=== PATIENT | male | born 1970 | race African-American/Black ===

== ENCOUNTER → 2016-09-06 | Outpatient (CLI) | payer OTHER ==
[~2016-09-06] MED LIST: ASMANEX TWISTHALER INH; ASPI1TAB PO; Aspirin PO; CLAR10CA3 PO; FISH1000 PO; HCTZ PO; LISINOPRIL PO; MELO7.5T6 PO; METH75TA PO; MONT10TA2 PO; OMEP20CA3 PO; PROP60TA14 PO; ROBA750T4 PO; SIMV20TA2 PO; TYLE325T5 PO
[2016-09-06 10:53] LABS: MEAN CORPUSCULAR HEMOGLOBIN 28.9 pg (27.0-33.0); MEAN CORPUSCULAR HGB CONC 32.4 g/dl (32.0-36.5); MEAN CORPUSCULAR VOLUME 89.1 fl (80.0-96.0); RED CELL DISTRIBUTION WIDTH 13.3 % (11.5-14.5); WHITE BLOOD COUNT 4.2 K/mm3 (4.0-10.0)
[2016-09-06 11:16] LABS: ALBUMIN 3.5 GM/DL (3.2-5.2); ALBUMIN/GLOBULIN RATIO 0.92 (1.00-1.93); ALKALINE PHOSPHATASE 80 U/L (45-117); ALT/SGPT 57 U/L (12-78); ANION GAP 5 MEQ/L (8-16); AST/SGOT 23 U/L (15-37); BILIRUBIN,DIRECT 0.1 MG/DL (0.0-0.2); BILIRUBIN,TOTAL 0.5 MG/DL (0.2-1.0); BLOOD UREA NITROGEN 12 MG/DL (7-18); CALCIUM LEVEL 8.9 MG/DL (8.5-10.1); CARBON DIOXIDE LEVEL 33 MEQ/L (21-32); CHLORIDE LEVEL 105 MEQ/L (98-107); CREATININE FOR GFR 1.17 MG/DL (0.70-1.30); GLOMERULAR FILTRATION RATE > 60.0 (>60); GLUCOSE, FASTING 101 MG/DL (70-105); PHOSPHORUS LEVEL 3.5 MG/DL (2.5-4.9); POTASSIUM SERUM 4.3 MEQ/L (3.5-5.1); SODIUM LEVEL 143 MEQ/L (136-145); TOTAL PROTEIN 7.3 GM/DL (6.4-8.2)
== END | disposition home or self-care (01) ==
LOC: M LAB 10:01
PROVIDERS: ATTEND Podiatrist Foot & Ankle Surgery
DX: Z51.81 Encounter for therapeutic drug level monitoring (principal); Z79.899 Other long term (current) drug therapy; B35.1 Tinea unguium

== ENCOUNTER 2016-10-28 08:39 | Outpatient (RCR) | payer OTHER | END 2016-10-29 | LOC: M PT 08:39 | PROVIDERS: ATTEND Family Medicine | DX: Z51.89 Encounter for other specified aftercare (principal); G51.0 Bell's palsy | CPT/HCPCS: 97010; 97035; 97161; G0283 ==

== ENCOUNTER → 2016-10-28 | Outpatient (CLI) | payer OTHER ==
[2016-10-28 10:27] LABS: MEAN CORPUSCULAR HEMOGLOBIN 29.4 pg (27.0-33.0); MEAN CORPUSCULAR HGB CONC 33.2 g/dl (32.0-36.5); MEAN CORPUSCULAR VOLUME 88.4 fl (80.0-96.0); RED CELL DISTRIBUTION WIDTH 13.5 % (11.5-14.5); WHITE BLOOD COUNT 3.7 K/mm3 (4.0-10.0)
[2016-10-28 10:49] LABS: ALBUMIN 3.7 GM/DL (3.2-5.2); ALBUMIN/GLOBULIN RATIO 1.09 (1.00-1.93); ALKALINE PHOSPHATASE 68 U/L (45-117); ALT/SGPT 34 U/L (12-78); ANION GAP 6 MEQ/L (8-16); AST/SGOT 22 U/L (15-37); BILIRUBIN,DIRECT 0.1 MG/DL (0.0-0.2); BILIRUBIN,TOTAL 0.5 MG/DL (0.2-1.0); BLOOD UREA NITROGEN 11 MG/DL (7-18); CALCIUM LEVEL 8.9 MG/DL (8.5-10.1); CARBON DIOXIDE LEVEL 28 MEQ/L (21-32); CHLORIDE LEVEL 109 MEQ/L (98-107); CREATININE FOR GFR 1.21 MG/DL (0.70-1.30); GLOMERULAR FILTRATION RATE > 60.0 (>60); GLUCOSE, FASTING 105 MG/DL (70-105); PHOSPHORUS LEVEL 2.5 MG/DL (2.5-4.9); POTASSIUM SERUM 4.1 MEQ/L (3.5-5.1); SODIUM LEVEL 143 MEQ/L (136-145); TOTAL PROTEIN 7.1 GM/DL (6.4-8.2)
== END ==
LOC: M LAB 09:42
PROVIDERS: ATTEND Podiatrist Foot & Ankle Surgery
DX: Z51.81 Encounter for therapeutic drug level monitoring (principal); Z79.899 Other long term (current) drug therapy; B35.1 Tinea unguium

== ENCOUNTER 2016-11-10 08:29 | Outpatient (RCR) | payer OTHER | END 2016-11-28 | disposition home or self-care (01) | LOC: M PT 08:29 | PROVIDERS: ATTEND Family Medicine | DX: Z51.89 Encounter for other specified aftercare (principal); G51.0 Bell's palsy | CPT/HCPCS: 97010; 97035; G0283 ==

== ENCOUNTER → 2017-01-18 | Day surgery (SDC) | payer OTHER ==
[~2017-01-18] VITALS: Ht 172.7 cm; Wt 148.3 kg
[~2017-01-18] MED LIST changes: +ACETAMINOPHEN 325 MG TAB PO PRN; +ATOR1TAB18 PO; +BACL5TA PO; +BUPIVACAINE 0.75% 10 ML VIAL As Ordered ONE; +DESFLURANE 240 ML INHALANT As Ordered ONE; +ERYTHROMYCIN OPHTH OINT As Ordered ONE; +LIDOCAINE 2% W/EPIN INJ 20ML **PRES FREE As Ordered ONE; +LIDOCAINE 4% INJ 5 ML AMP As Ordered ONE; +LIDOCAINE 4% INJ 5 ML AMP OU ONE; +LR 1,000 ML IV SCH; +MAG-TAB2 PO; +MIDAZOLAM INJ 2 MG/2 ML VIAL (J2250) As Ordered ONE; +OFLOXACIN 0.3 % (OCUFLOX) OPTH SOL 5ML XX ONE; +POVIDONE-IODINE 5% OPHTH PREP SOL 30ML As Ordered ONE; +PROPARACAINE 0.5% OPHTH SOL 15ML OD PRN; +PROPOFOL 200 MG/20 ML VIAL As Ordered ONE; +REFR1DRO8 OP; +SEVOFLURANE INHAL SOLN 250 ML BTL As Ordered ONE; +TOPI200T4 PO; +TRIMETHOBENZAMIDE 300 MG CAP PO PRN; +fentaNYL 100 MCG/2 ML INJECTION (J3010) As Ordered ONE
[2017-01-18 10:00] VITALS: BP 128/65
--- NOTE | 2017-01-18 20:23 | RO ---
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 OPERATIVE PROCEDURE: Permanent lateral tarsorrhaphy 7 mm right eye. SURGEON: Demond Tan Jr DO VEHICLE LEASING AND RENTAL MANAGER: ANESTHESIA: Local 2% lidocaine 50:50 mixed with 0.75% Marcaine, 2 ml with monitoring and sedation by the anesthesiology team. SPECIMENS REMOVED: None. ESTIMATED BLOOD LOSS: Minimal. COMPLICATIONS: None. 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 The call center representative give some sedation and the site for the permanent tarsorrhaphy was marked at 7 mm from the lateral canthus. The upper lid and lower lid in that 7 mm were split. Posterior and anterior lamellae dissected. A small strip of the posterior lid was excised and the tarsal plates were reapproximated with a double-armed #4-0 suture and with a bolster creating a permanent lateral tarsorrhaphy. The lashes were turned out at the end of the procedure. A few #4-0 silk interrupted sutures also helped form the lid crease well. Erythromycin ointment was applied to the eye and the patient returned to the recovery room in excellent condition. He will use postoperative erythromycin ointment four times a day, Tylenol as needed for pain and will followup in the office in a couple of days. WILLIE
== END | disposition home or self-care (01) ==
LOC: M SDC 05:59
PROVIDERS: ATTEND Ophthalmology
DX: G51.0 Bell's palsy (principal); H02.23 Paralytic lagophthalmos; H16.8 Other keratitis; I10 Essential (primary) hypertension; J45.909 Unspecified asthma, uncomplicated; E78.00 Pure hypercholesterolemia, unspecified; M54.9 Dorsalgia, unspecified; K21.9 Gastro-esophageal reflux disease without esophagitis; M19.90 Unspecified osteoarthritis, unspecified site; D57.3 Sickle-cell trait; M51.9 Unspecified thoracic, thoracolumbar and lumbosacral intervertebral disc disorder; G47.30 Sleep apnea, unspecified; Z79.899 Other long term (current) drug therapy; Z79.82 Long term (current) use of aspirin; Z79.51 Long term (current) use of inhaled steroids; Z88.0 Allergy status to penicillin; Z88.5 Allergy status to narcotic agent; Z91.041 Radiographic dye allergy status

== ENCOUNTER → 2021-04-03 | Outpatient (CLI) | payer OTHER ==
[~2021-04-03] MED LIST changes: -ACETAMINOPHEN 325 MG TAB PO PRN; -ASPI1TAB PO; +ASPI81TA26 PO; -ATOR1TAB18 PO; +ATOR80TA59 PO; +BACL10TA8 PO; -BACL5TA PO; -BUPIVACAINE 0.75% 10 ML VIAL As Ordered ONE; -DESFLURANE 240 ML INHALANT As Ordered ONE; -ERYTHROMYCIN OPHTH OINT As Ordered ONE; -LIDOCAINE 2% W/EPIN INJ 20ML **PRES FREE As Ordered ONE; -LIDOCAINE 4% INJ 5 ML AMP As Ordered ONE; -LIDOCAINE 4% INJ 5 ML AMP OU ONE; -LR 1,000 ML IV SCH; -MELO7.5T6 PO; +MELO7.5T7 PO; +METH-1165 PO; -METH75TA PO; -MIDAZOLAM INJ 2 MG/2 ML VIAL (J2250) As Ordered ONE; +MONT10TA10 PO; -MONT10TA2 PO; -OFLOXACIN 0.3 % (OCUFLOX) OPTH SOL 5ML XX ONE; +OMEP1CAP73 PO; -OMEP20CA3 PO; -POVIDONE-IODINE 5% OPHTH PREP SOL 30ML As Ordered ONE; -PROPARACAINE 0.5% OPHTH SOL 15ML OD PRN; -PROPOFOL 200 MG/20 ML VIAL As Ordered ONE; -SEVOFLURANE INHAL SOLN 250 ML BTL As Ordered ONE; -SIMV20TA2 PO; +SIMV20TA22 PO; -TOPI200T4 PO; +TOPI200T7 PO; -TRIMETHOBENZAMIDE 300 MG CAP PO PRN; -fentaNYL 100 MCG/2 ML INJECTION (J3010) As Ordered ONE
--- NOTE | 2021-04-03 10:46 | REP ---
INDICATION: DYSPNEA COMPARISON: 02/24/2015 TECHNIQUE: PA and lateral. FINDINGS: The mediastinum and cardiac silhouette are normal. The lung rojas are relatively clear in the frontal projection although lateral view cannot exclude a posterior lower lobe infiltrate and correlation with auscultation is recommended. No further consolidation, effusion, or pneumothorax.. The skeletal structures are intact and normal. IMPRESSION: Questionable left lower lobe opacity on lateral view requires correlation. Otherwise unremarkable chest. <Electronically signed by Yann Hernandez > 04/03/21 [id number]
== END ==
LOC: M RAD 10:21
PROVIDERS: ATTEND Physician Assistant
DX: R91.8 Other nonspecific abnormal finding of lung field (principal)

== ENCOUNTER → 2021-05-01 | Outpatient (CLI) | payer OTHER ==
--- NOTE | 2021-05-01 10:12 | REP ---
INDICATION: ABN FINDING OF LUNG COMPARISON: Chest x-ray dated 04/03/2021, chest CT dated 02/24/2015 TECHNIQUE: Axial noncontrast images from the thoracic inlet to the upper abdomen with coronal and sagittal reformations. This CT examination was performed using the following dose reduction techniques: Automated exposure control, adjustment of mA and/or kv according to the patient's size, and use of iterative reconstruction technique. FINDINGS: The lung rojas are well aerated and essentially clear. No acute consolidation, effusion, or pneumothorax. No suspicious nodule or mass lesion. No evidence for adenopathy. Tracheobronchial tree is patent. Mediastinum demonstrates normal thoracic aorta, pulmonary vasculature, and heart/pericardium. Surrounding musculoskeletal structures are intact and without acute process. Upper abdomen demonstrates normal bilateral adrenal glands. IMPRESSION: No acute mediastinal or pleuroparenchymal process. <Electronically signed by Yann Hernandez > 05/01/21 [id number]
== END ==
LOC: M RAD 09:32
PROVIDERS: ATTEND Physician Assistant
DX: R91.8 Other nonspecific abnormal finding of lung field (principal)

== ENCOUNTER → 2021-05-05 | Outpatient (CLI) | payer OTHER ==
[~2021-05-05] MED LIST changes: +METHACHOLINE KIT (J7674) INH ONE
--- NOTE | 2021-05-05 08:36 | PFTRPT ---
Height: 69.00 Inches Weight: 324.00 Lbs BSA: 2.54 Diagnosis: R06.00 DATE: 05/05/2021 ORDERED BY: Sameer Pelayo QUALITY: Study of excellent technical quality. PROCEDURE: Under protocol, methacholine was administered. At a dose of 2.5 mg or 13.875 CDUs, a 24% decline in the FEV1 was noted. PC of 1.49 is significant. Flow rates did return to baseline post bronchodilator administration. IMPRESSION: Positive methacholine challenge study. MTDD
== END ==
LOC: M CARPUL 07:50
PROVIDERS: ATTEND Physician Assistant
DX: R06.00 Dyspnea, unspecified (principal)
CPT/HCPCS: 94070; 95070; J7674

== ENCOUNTER 2022-03-30 08:55 | Outpatient (RCR) | payer OTHER ==
[~2022-03-30 08:55] MED LIST changes: -METHACHOLINE KIT (J7674) INH ONE; -MONT10TA10 PO; +MONT10TA97 PO
== END 2022-03-31 ==
LOC: M PT 08:55
PROVIDERS: ATTEND Surgery
DX: I89.0 Lymphedema, not elsewhere classified (principal)

== ENCOUNTER → 2022-04-30 | Outpatient (RCR) | payer OTHER | END | disposition still patient (30) | LOC: M PT 04-06 12:28 | PROVIDERS: ATTEND Surgery | DX: I89.0 Lymphedema, not elsewhere classified (principal) ==

== ENCOUNTER 2022-05-19 09:59 | Outpatient (RCR) | payer OTHER | END 2022-05-31 | disposition still patient (30) | LOC: M PT 09:59 | PROVIDERS: ATTEND Surgery | DX: I89.0 Lymphedema, not elsewhere classified (principal) ==

== ENCOUNTER 2022-11-25 11:55 | Outpatient (RCR) | payer OTHER | END 2022-11-28 | LOC: M PT 11:55 | PROVIDERS: ATTEND Surgery | DX: I89.0 Lymphedema, not elsewhere classified (principal) ==

== ENCOUNTER 2022-12-20 14:57 | Outpatient (RCR) | payer OTHER | END 2022-12-29 | LOC: M PT 14:57 | PROVIDERS: ATTEND Surgery | DX: I89.0 Lymphedema, not elsewhere classified (principal) ==

== ENCOUNTER 2023-01-25 11:55 | Outpatient (RCR) | payer OTHER | END 2023-01-28 | LOC: M PT 11:55 | PROVIDERS: ATTEND Surgery | DX: I89.0 Lymphedema, not elsewhere classified (principal) ==

== ENCOUNTER 2023-03-25 09:22 | Outpatient (RCR) | payer OTHER | END 2023-03-31 | LOC: M PT 09:22 | PROVIDERS: ATTEND Surgery | DX: I89.0 Lymphedema, not elsewhere classified (principal) ==

== ENCOUNTER 2023-07-21 12:22 | Outpatient (RCR) | payer OTHER | END 2023-07-31 | LOC: M PT 12:22 | PROVIDERS: ATTEND Surgery | DX: I89.0 Lymphedema, not elsewhere classified (principal) ==

== ENCOUNTER 2023-08-30 12:00 | Outpatient (RCR) | payer OTHER | END 2023-08-31 | LOC: M PT 12:00 | PROVIDERS: ATTEND Surgery | DX: I89.0 Lymphedema, not elsewhere classified (principal) ==

== ENCOUNTER 2023-09-20 12:45 | Outpatient (RCR) | payer OTHER | END 2023-09-29 | LOC: M PT 12:45 | PROVIDERS: ATTEND Surgery | DX: I89.0 Lymphedema, not elsewhere classified (principal) ==

== ENCOUNTER 2023-10-24 10:19 | Outpatient (RCR) | payer OTHER | END 2023-10-30 | LOC: M PT 10:19 | PROVIDERS: ATTEND Surgery | DX: I89.0 Lymphedema, not elsewhere classified (principal) ==

== ENCOUNTER 2023-11-28 12:00 | Outpatient (RCR) | payer OTHER | END 2023-11-29 | LOC: M PT 12:00 | PROVIDERS: ATTEND Surgery | DX: I89.0 Lymphedema, not elsewhere classified (principal) ==

== ENCOUNTER 2023-12-15 15:58 | Emergency (ER) | payer OTHER ==
[~2023-12-15] VITALS: Ht 172.7 cm; Wt 153.0 kg
[2023-12-15] MEDS ORDERED: ISOVUE-370 76% 100ML VIAL As Ordered ONE (16:18)
[2023-12-15 16:25] LABS: BASO % 0.2 % (0.0-1.0); EOS # 0.1 10^3/uL (0.0-0.5); EOS % 2.5 % (0.0-3.0); HEMATOCRIT 40.7 % (42.0-52.0); HEMOGLOBIN 13.8 g/dl (13.5-17.5); LYMPH # 1.3 10^3/uL (1.5-5.0); LYMPH % 29.2 % (24.0-44.0); MEAN CORPUSCULAR HEMOGLOBIN 30.4 pg (27.0-33.0); MEAN CORPUSCULAR HGB CONC 33.9 g/dl (32.0-36.5); MEAN CORPUSCULAR VOLUME 89.6 fl (80.0-96.0); MONO # 0.4 10^3/uL (0.0-0.8); NEUTROPHILS # 2.6 10^3/uL (1.5-8.5); NEUTROPHILS % 58.9 % (36.0-66.0); PLATELET COUNT, AUTOMATED 217 10^3/uL (150-450); RED BLOOD COUNT 4.54 10^6/uL (4.30-6.10); WHITE BLOOD COUNT 4.5 10^3/uL (4.0-10.0)
[2023-12-15 16:40] LABS: INR 1.04; PARTIAL THROMBOPLASTIN TIME 29.4 SECONDS (24.8-34.2); PROTHROMBIN TIME 13.3 SECONDS (12.5-14.5)
[2023-12-15 16:59] LABS: BLOOD UREA NITROGEN 18 MG/DL (9-23); CALCIUM LEVEL 8.9 MG/DL (8.5-10.1); CARBON DIOXIDE LEVEL 26 MMOL/L (20-31); CHLORIDE LEVEL 109 MMOL/L (98-107); CREATININE FOR GFR 1.08 MG/DL (0.70-1.30); GLOMERULAR FILTRATION RATE > 60.0 (>56); GLUCOSE, FASTING 128 MG/DL (60-100); POTASSIUM SERUM 4.2 MMOL/L (3.5-5.1); SODIUM LEVEL 142 MMOL/L (136-145)
[2023-12-15] MEDS: diphenhydrAMINE 50MG/ML VIAL IV ONE (21:09)
[2023-12-15] MEDS: METOCLOPRAMIDE INJ 10MG/2ML VIAL IV ONE (21:10)
[2023-12-15] MEDS: NS 1,000 ML IV ONE (21:10)
[2023-12-15] MEDS: ACETAMINOPHEN 500 MG TAB PO ONE (21:10)
[2023-12-15 22:00] VITALS: BP 113/60; TEMP 98; O2SAT 95
[2023-12-15] MEDS: MAG SULF 1GM/100ML (MAG RUN) 1 GM in IV 1 EA IV ONE (22:27)
[2023-12-15] MEDS ORDERED: PRED20TA PO (23:28)
== END 2023-12-15 23:45 | disposition home or self-care (01) ==
LOC: M ED 15:58
DX: G51.0 Bell's palsy (principal); G43.909 Migraine, unspecified, not intractable, without status migrainosus; I10 Essential (primary) hypertension; K21.9 Gastro-esophageal reflux disease without esophagitis; F43.10 Post-traumatic stress disorder, unspecified; Z88.5 Allergy status to narcotic agent; Z88.8 Allergy status to other drugs, medicaments and biological substances; Z79.2 Long term (current) use of antibiotics; Z79.52 Long term (current) use of systemic steroids; Z79.899 Other long term (current) drug therapy
CPT/HCPCS: 70450; 70496; 70498; 70551; 71045; 80048; 85025; 85610; 85730; 86850; 86900; 86901; 93005; 93041; 94760; 96361; 96374; 96375; 99285; J1100; J1200; J2765; J3475; Q9967

== ENCOUNTER 2023-12-27 11:56 | Outpatient (RCR) | payer OTHER ==
[~2023-12-27 11:56] MED LIST changes: +PRED20TA PO
== END 2023-12-30 ==
LOC: M PT 11:56
PROVIDERS: ATTEND Surgery
DX: I89.0 Lymphedema, not elsewhere classified (principal)

== ENCOUNTER 2024-01-25 12:15 | Outpatient (RCR) | payer OTHER | END 2024-01-29 | LOC: M PT 12:15 | PROVIDERS: ATTEND Surgery | DX: I89.0 Lymphedema, not elsewhere classified (principal) ==

== ENCOUNTER 2024-02-03 13:53 | Outpatient (RCR) | payer OTHER | END 2024-02-29 | LOC: M PT 13:53 | PROVIDERS: ATTEND Surgery | DX: I89.0 Lymphedema, not elsewhere classified (principal) ==

== ENCOUNTER 2024-06-18 12:00 | Outpatient (RCR) | payer OTHER | END 2024-06-30 | LOC: M PT 12:00 | PROVIDERS: ATTEND Internal Medicine | DX: I89.0 Lymphedema, not elsewhere classified (principal) ==

== ENCOUNTER 2024-07-23 13:26 | Outpatient (RCR) | payer OTHER | END 2024-07-31 | LOC: M PT 13:26 | PROVIDERS: ATTEND Internal Medicine | DX: I89.0 Lymphedema, not elsewhere classified (principal) ==

== ENCOUNTER 2024-08-30 12:18 | Outpatient (RCR) | payer OTHER | END 2024-08-31 | LOC: M PT 12:18 | PROVIDERS: ATTEND Internal Medicine | DX: I89.0 Lymphedema, not elsewhere classified (principal) ==

== ENCOUNTER 2024-09-05 12:42 | Outpatient (RCR) | payer OTHER | END 2024-09-28 | LOC: M PT 12:42 | PROVIDERS: ATTEND Internal Medicine | DX: I89.0 Lymphedema, not elsewhere classified (principal) ==